=== PATIENT | female | born 1945 | race Asian ===

== ENCOUNTER 2017-04-09 12:28 | Emergency (ER) | payer OTHER ==
[~2017-04-09] VITALS: Ht 152.4 cm; Wt 56.2 kg
[2017-04-09 12:38] VITALS: BP_SYST 132
[2017-04-09 13:40] LABS: BASOPHILS % (AUTO) 0.2 % (0.0-2.0); EOSINOPHILS # (AUTO) 0.1 K/uL (0.0-0.4); EOSINOPHILS % (AUTO) 0.8 % (0.0-4.0); HEMATOCRIT 44.2 % (36-48); HEMOGLOBIN 14.4 g/dL (12.0-16.0); LYMPHOCYTES # (AUTO) 0.9 K/uL (1.0-5.5); LYMPHOCYTES % (AUTO) 13.2 % (20.5-51.5); MEAN CORPUSCULAR HEMOGLOBIN 31 pg (27-31); MEAN CORPUSCULAR HGB CONC 33 % (32-36); MEAN CORPUSCULAR VOLUME 94 fL (79.0-98.0); MONOCYTES # (AUTO) 0.4 K/uL (0.0-1.0); MONOCYTES % (AUTO) 5.3 % (1.7-9.3); NEUTROPHILS # (AUTO) 5.6 K/uL (1.8-7.7); NEUTROPHILS % (AUTO) 80.5 % (40.0-70.0); PLATELET COUNT (AUTO) 235 K/uL (130-430); RED BLOOD CELL COUNT(AUTO) 4.73 MIL/uL (4.2-6.2); RED CELL DISTRIBUTION WIDTH 12.4 % (9.0-15.0)
[2017-04-09 13:49] LABS: ANION GAP 7 (5-15); CALCIUM 9.8 mg/dL (8.4-11.0); CHLORIDE 104 mmol/L (98-107); CREATININE 0.54 mg/dL (0.55-1.30); GLUCOSE 142 mg/dL (70-99); POTASSIUM 4.2 mmol/L (3.5-5.1); SODIUM SERUM 139 mmol/L (136-145); UREA NITROGEN, BLOOD 17 mg/dL (8-21)
[2017-04-09 13:54] LABS: ALANINE AMINOTRANSFERASE 22 U/L (12-78); ALBUMIN 3.6 g/dL (3.4-4.8); ASPARTATE AMINOTRANSFERASE 18 U/L (10-37); TOTAL BILIRUBIN 0.7 mg/dL (0.0-1.0)
[2017-04-09 14:10] LABS: BILIRUBIN,URINE NEGATIVE (NEGATIVE); BLOOD, URINE NEGATIVE (NEGATIVE); CLARITY/URINE CLEAR (CLEAR); COLOR,URINE YELLOW (YELLOW); GLUCOSE,URINE NEGATIVE (NEGATIVE); KETONES,URINE NEGATIVE (NEGATIVE); LEUKOCYTE ESTERASE ,URINE TRACE (NEGATIVE); NITRITE, URINE NEGATIVE (NEGATIVE); PH,URINE 6.5 (5.0-8.0); PROTEIN URINE NEGATIVE (NEGATIVE); UROBILINOGEN,URINE 0.2 (0.2-1.0)
[2017-04-09 14:23] LABS: BACTERIA,URINE FEW /HPF (None Seen); RBC,URINE 0-3 /HPF (0-3)
[2017-04-09 16:10] VITALS: BP_SYST 128
== END 2017-04-09 16:10 | disposition home or self-care (01) ==
LOC: SED 12:28
DX: S40.012A Contusion of left shoulder, initial encounter (principal); S40.011A Contusion of right shoulder, initial encounter; S70.01XA Contusion of right hip, initial encounter; S00.83XA Contusion of other part of head, initial encounter; S20.211A Contusion of right front wall of thorax, initial encounter; N39.0 Urinary tract infection, site not specified; E11.9 Type 2 diabetes mellitus without complications; W01.0XXA Fall on same level from slipping, tripping and stumbling without subsequent striking against object, initial encounter; Y93.89 Activity, other specified; Y92.89 Other specified places as the place of occurrence of the external cause; Y99.8 Other external cause status
CPT/HCPCS: 36415; 70450-TC; 71045; 72125-TC; 73030; 73502; 80053; 81000-TC; 84484; 85025; 85610-TC; 85730-TC; 87086; 93005; 99285

== ENCOUNTER 2018-11-20 18:56 | Emergency (ER) | payer OTHER ==
[~2018-11-20] VITALS: Ht 149.9 cm; Wt 56.2 kg
--- NOTE | 2018-11-20 19:15 | NUR ---
Patient to ER bed 8 to gown for evaluation. Side rails up.
[2018-11-20 19:18] VITALS: BP_SYST 136
--- NOTE | 2018-11-20 19:20 | NUR ---
Pt 73 year old female A&Ox3, hx of diabetes and htn C/O Rt upper back pain and RT elbow abrasion and pain S/P mechanical fall. Pt states she was walking on the sidewalk, tripped and fell. Pt is able to ambulate with walker to the bed. Pt denies KO, head or neck pain, trauma, bleeding, dizziness, N/V, or any other symptoms besides the pain. Will continue to monitor.
--- NOTE | 2018-11-20 19:36 | NUR ---
ER Dr. Perdomo at bedside examining patient.
[2018-11-20] MEDS ORDERED: ACETAMINOPHEN 325 MG TABLET PO ONE (19:45)
[2018-11-20] MEDS ORDERED: BACITRACIN ZINC 15 GM TOPICAL OINTMENT TP ONE (19:45)
[2018-11-20] MEDS ORDERED: BACITRACIN 1 GM OINT TP ONE (20:02)
--- NOTE | 2018-11-20 20:13 | NUR ---
Radiology at bedside for xray
[2018-11-20 21:03] VITALS: BP_SYST 136
--- NOTE | 2018-11-20 21:06 | NUR ---
Patient given written and verbal discharge instructions and verbalizes understanding. ER MD discussed with patient the results and treatment provided. Patient in stable condition. ID arm band removed. Patient educated on pain management and to follow up with PMD. Pain Scale 0. Opportunity for questions provided and answered. Medication side effect fact sheet provided.
== END 2018-11-20 21:06 | disposition home or self-care (01) ==
LOC: SED 18:56
DX: S40.011A Contusion of right shoulder, initial encounter (principal); E11.9 Type 2 diabetes mellitus without complications; W01.0XXA Fall on same level from slipping, tripping and stumbling without subsequent striking against object, initial encounter; Y93.89 Activity, other specified; Y92.89 Other specified places as the place of occurrence of the external cause; Y99.8 Other external cause status
CPT/HCPCS: 72072-TC; 82962; 99283

== ENCOUNTER 2020-01-12 11:00 | Emergency (ER) | payer MEDICARE, OTHER ==
[~2020-01-12] VITALS: Ht 154.9 cm; Wt 48.1 kg
[2020-01-12 11:00] VITALS: BP_SYST 142
[2020-01-12 13:00] VITALS: BP_SYST 142
== END 2020-01-12 13:01 | disposition home or self-care (01) ==
LOC: SED 11:00
DX: E11.9 Type 2 diabetes mellitus without complications (principal); Z85.9 Personal history of malignant neoplasm, unspecified; W18.30XA Fall on same level, unspecified, initial encounter; Y93.89 Activity, other specified; Y92.89 Other specified places as the place of occurrence of the external cause; Y99.8 Other external cause status
CPT/HCPCS: 70450-TC; 76376; 99284

== ENCOUNTER 2020-05-31 13:13 | Emergency (ER) | payer MEDICARE ==
[~2020-05-31] VITALS: Ht 152.4 cm; Wt 40.8 kg
[2020-05-31 13:17] VITALS: BP_SYST 152
[2020-05-31 13:19] VITALS: BP_SYST 153
[2020-05-31] MEDS ORDERED: ACETAMINOPHEN 325 MG TABLET PO ONE (14:15)
[2020-05-31 14:46] LABS: BASOPHILS % (AUTO) 0.2 % (0.0-2.0); EOSINOPHILS # (AUTO) 0.1 K/uL (0.0-0.4); HEMATOCRIT 40.5 % (36-48); HEMOGLOBIN 13.4 g/dL (12.0-16.0); LYMPHOCYTES # (AUTO) 0.9 K/uL (1.0-5.5); LYMPHOCYTES % (AUTO) 10.4 % (20.5-51.5); MEAN CORPUSCULAR HEMOGLOBIN 31 pg (27-31); MEAN CORPUSCULAR HGB CONC 33 % (32-36); MEAN CORPUSCULAR VOLUME 93 fL (79.0-98.0); MONOCYTES # (AUTO) 0.4 K/uL (0.0-1.0); MONOCYTES % (AUTO) 4.9 % (1.7-9.3); NEUTROPHILS # (AUTO) 7.5 K/uL (1.8-7.7); NEUTROPHILS % (AUTO) 83.5 % (40.0-70.0); PLATELET COUNT (AUTO) 220 K/uL (130-430); RED BLOOD CELL COUNT(AUTO) 4.37 MIL/uL (4.2-6.2); RED CELL DISTRIBUTION WIDTH 13.7 % (9.0-15.0)
[2020-05-31 14:47] LABS: BILIRUBIN,URINE NEGATIVE (NEGATIVE); COLOR,URINE YELLOW (YELLOW); GLUCOSE,URINE NEGATIVE (NEGATIVE); KETONES,URINE NEGATIVE (NEGATIVE); LEUKOCYTE ESTERASE ,URINE 3+ (NEGATIVE); NITRITE, URINE NEGATIVE (NEGATIVE); PH,URINE 6.5 (5.0-8.0); PROTEIN URINE NEGATIVE (NEGATIVE); UROBILINOGEN,URINE 0.2 (0.2-1.0)
[2020-05-31 14:57] LABS: ANION GAP 7 (5-15); CALCIUM 9.8 mg/dL (8.4-11.0); CHLORIDE 104 mmol/L (98-107); CREATININE 0.67 mg/dL (0.55-1.30); GLUCOSE 93 mg/dL (70-99); POTASSIUM 4.1 mmol/L (3.5-5.1); SODIUM SERUM 142 mmol/L (136-145); UREA NITROGEN, BLOOD 16 mg/dL (8-21)
[2020-05-31 14:58] LABS: BLOOD, URINE TRACE (NEGATIVE)
[2020-05-31 14:59] LABS: CLARITY/URINE HAZY (CLEAR)
[2020-05-31 15:02] LABS: BACTERIA,URINE FEW /HPF (None Seen); WBC,URINE 20-50 /HPF (0-3)
[2020-05-31 15:03] LABS: MUCUS,URINE 1+ /LPF (None Seen)
[2020-05-31 15:13] LABS: ALANINE AMINOTRANSFERASE 32 U/L (12-78); ALBUMIN 3.8 g/dL (3.4-4.8); ASPARTATE AMINOTRANSFERASE 20 U/L (10-37); TOTAL BILIRUBIN 0.7 mg/dL (0.0-1.0)
[2020-05-31 15:34] VITALS: BP_SYST 136
[2020-05-31] MEDS ORDERED: NITR-85 PO (15:53)
== END 2020-05-31 16:00 | disposition home or self-care (01) ==
LOC: SED 13:13
DX: N39.0 Urinary tract infection, site not specified (principal); E11.9 Type 2 diabetes mellitus without complications
CPT/HCPCS: 36415; 80053; 81000-TC; 84484; 85025; 87086; 93005; 99284

== ENCOUNTER 2020-09-01 02:09 | Inpatient (IN) | payer MEDICARE, SELFPAY ==
[2020-09-01] VITALS (29 sets, daily range): BP systolic 74–192
[~2020-09-01] VITALS: Ht 152.4 cm; Wt 40.4 kg
[~2020-09-01 02:09] MED LIST: NITR-85 PO
--- NOTE | 2020-09-01 02:09 | NUR ---
Patient to ER bed 1 to gown for evaluation. Side rails up. Report given to SAVANNA MENDEZ.
--- NOTE | 2020-09-01 02:10 | NUR ---
PT BIB ALS FROM HOME C/O RESPIRATORY DISTRESS. PER EMS PT WAS TACHY 112 AND HYPOTENSIVE IN FIELD WITH SBP IN 80'S AND HYPOXIC WITH SPO2 80% ON NRB. PT ARRIVED WITH CPAP ON, COOL SKIN, DIAPHORETIC, NONVERBAL.
--- NOTE | 2020-09-01 02:10 | NUR ---
accucheck 96
--- NOTE | 2020-09-01 02:11 | NUR ---
# 20 gauge angiocath placed to RFA. Use of asceptic technique. Opsite placed over site. Blood return noted. Blood for lab drawn from site. Flushed with 10 cc of normal saline. No evidence of infiltration noted. Patient tolerated well.
[2020-09-01] MEDS ORDERED: IPRATROPIUM BROM 0.5 MG/2.5 ML VIAL.NEB (ATROVENT) INH ONE (02:15)
[2020-09-01] MEDS ORDERED: LevALBUTEROL HCL 1.25 MG/0.5 ML *CONC.* VIAL.NEB (XOPENEX CONC.) INH ONE ×2 (02:15→04:45)
[2020-09-01] MEDS ORDERED: NACL 0.9% 1,000 ML IV ONE ×2 (02:15→03:45)
--- NOTE | 2020-09-01 02:15 | NUR ---
DR. ROWAN AT BEDSIDE FOR EVALUATION.
--- NOTE | 2020-09-01 02:39 | NUR ---
# 16 FR Farnsworth catheter with use of sterile technique. Immediate return of 100 cc YELLOW AND CLOUDY urine noted. Bedside drainage bag placed below level of bladder. Urine sample collected and sent to lab. Pt tolerated procedure WELL Patient unable to toilet self.
[2020-09-01 02:56] LABS: BASOPHILS % (AUTO) 0.1 % (0.0-2.0); HEMATOCRIT 46.6 % (36-48); HEMOGLOBIN 14.7 g/dL (12.0-16.0); LYMPHOCYTES % (AUTO) 7.9 % (20.5-51.5); MEAN CORPUSCULAR HEMOGLOBIN 29 pg (27-31); MEAN CORPUSCULAR HGB CONC 32 % (32-36); MEAN CORPUSCULAR VOLUME 93 fL (79.0-98.0); MONOCYTES # (AUTO) 0.6 K/uL (0.0-1.0); MONOCYTES % (AUTO) 4.4 % (1.7-9.3); NEUTROPHILS # (AUTO) 11.1 K/uL (1.8-7.7); NEUTROPHILS % (AUTO) 87.6 % (40.0-70.0); PLATELET COUNT (AUTO) 126 K/uL (130-430); RED BLOOD CELL COUNT(AUTO) 5.01 MIL/uL (4.2-6.2); WHITE BLOOD COUNT (AUTO) 12.7 K/uL (4.8-10.8)
[2020-09-01 03:06] LABS: BILIRUBIN,URINE NEGATIVE (NEGATIVE); BLOOD, URINE 3+ (NEGATIVE); CLARITY/URINE CLOUDY (CLEAR); COLOR,URINE YELLOW (YELLOW); GLUCOSE,URINE NEGATIVE (NEGATIVE); KETONES,URINE TRACE (NEGATIVE); LEUKOCYTE ESTERASE ,URINE 2+ (NEGATIVE); NITRITE, URINE NEGATIVE (NEGATIVE); PH,URINE 5.5 (5.0-8.0); PROTEIN URINE 1+ (NEGATIVE); UROBILINOGEN,URINE 0.2 (0.2-1.0)
[2020-09-01 03:08] LABS: BACTERIA,URINE MANY /HPF (None Seen); WBC,URINE >100 /HPF (0-3)
[2020-09-01 03:12] LABS: INR 1.1 (0.8-1.2); PROTHROMBIN TIME 11.8 SECS (9.5-12.5)
[2020-09-01 03:14] LABS: ANION GAP 23 (5-15); CALCIUM 9.6 mg/dL (8.4-11.0); CREATININE 1.78 mg/dL (0.55-1.30); GLUCOSE 90 mg/dL (70-99); UREA NITROGEN, BLOOD 91 mg/dL (8-21)
[2020-09-01] MEDS ORDERED: cefTRIAXone 1 GM IVPB PREMIX 50 ML IV ONE (03:15)
[2020-09-01 03:18] LABS: ALANINE AMINOTRANSFERASE 27 U/L (12-78); ALBUMIN 2.6 g/dL (3.4-4.8); ASPARTATE AMINOTRANSFERASE 38 U/L (10-37); TOTAL BILIRUBIN 1.1 mg/dL (0.0-1.0)
[2020-09-01 03:19] LABS: CHLORIDE 120 mmol/L (98-107); POTASSIUM 2.5 mmol/L (3.5-5.1); SODIUM SERUM 165 mmol/L (136-145)
[2020-09-01] MEDS ORDERED: KCL 20 mEq in 100 mL (PREMIX) 100 ML IV ONE (03:45)
[2020-09-01] MEDS ORDERED: ASPIRIN 300 MG/SUPP.RECT SUPP RC ONE ×2 (03:45→03:55)
[2020-09-01] MEDS ORDERED: NS 500 ML IV ONE (04:30)
--- NOTE | 2020-09-01 04:30 | NUR ---
Patient's code status is FULL CODE paperwork completed and placed in chart.
[2020-09-01] MEDS ORDERED: AZITHROMYCIN 500 MG in NS 250 ML IV ONE ×2 (04:45→05:15)
[2020-09-01] MEDS ORDERED: methylPREDNISolone SOD SUCC/PF 62.5 MG/ML VIAL IVP ONE ×2 (04:45)
[2020-09-01] MEDS ORDERED: NACL 0.9% 1,000 ML IV SCH ×2 (04:45→05:15)
[2020-09-01] MEDS ORDERED: AZITHROMYCIN 500 MG/VIAL (ZITHROMAX) IV ONE (04:54)
--- NOTE | 2020-09-01 04:58 | NUR ---
Patient will be admitted to care of DR. ALMEIDA. Admitted to ICU unit. Will go to room 1. Belongings list completed. Complete and up to date summary report printed. SBAR report to be given at bedside with opportunity for questions.
--- NOTE | 2020-09-01 04:59 | NUR ---
UNABLE TO PERFORM MED RECONCILIATION D/T PATIENT STATUS
--- NOTE | 2020-09-01 05:00 | NUR ---
Transfer to ICU via ACLS protocol. Licensed nurse present. IV present no signs or symptoms of infiltration.
--- NOTE | 2020-09-01 05:05 | NUR ---
ADMISSION NOTE Received patient from ER via gurney. Patient admitted with diagnosis of ACUTE RESPIRATORY FAILURE. PT NONVERBAL. BIPAP IN PLACE PER ORDERS. PERIPHERAL IV SITES PATENT AND INTACT. FC IN PLACE. HOB ELEVATED, BED IN LOWEST POSTIION, CALL LIGHT IN REACH. SAFETY PRECAUTIONS IN PLACE. WILL CONTINUE TO MONITOR PT.
[2020-09-01] MEDS ORDERED: POTASSIUM CHLORIDE 20 MEQ in NS 250 ML IV ONE (06:30)
[2020-09-01] MEDS ORDERED: DILTIAZEM HCL 25 MG/5 ML VIAL IVP PRN (06:30)
[2020-09-01] MEDS ORDERED: PIPERACILLIN/TAZO 2.25G/DEX-IS 50 ML IV SCH (06:30)
--- NOTE | 2020-09-01 06:32 | NUR ---
CONSULTATION PAGED: PRIORITY: ROUTINE REASON FOR CONSULTATION: ELEVATED TROP WAS CONSULT CALLED:Y PERSON WHO WAS NOTIFIED: BUD CONSULTING PHYSICIAN: DR. CABRERA ASSOCIATE PROFESSOR OF LITERACY SPECIALTY: CARDIO ASSOCIATE PROFESSOR OF LITERACY PHONE NUMBER: [phone] REQUESTING PHYSICIAN: DR. ALMEIDA
[2020-09-01] MEDS ORDERED: DEXTROSE 50% JECT 50 ML DISP.SYRIN IVP PRN (07:00)
[2020-09-01] MEDS ORDERED: D5LR 1,000 ML IV SCH (07:00)
[2020-09-01] MEDS: IPRATROPIUM/ALBUTEROL SULFATE 3 ML AMPUL.NEB (DUONEB) INH SCH ×3 (07:00→19:15)
[2020-09-01] MEDS ORDERED: IPRATROPIUM/ALBUTEROL SULFATE 3 ML AMPUL.NEB (DUONEB) INH PRN (07:00)
--- NOTE | 2020-09-01 07:02 | NUR ---
DR. ELLE LOPEZ AT BEDSIDE TO EVALUATE PT. MADE AWARE OF PT RECEIVING NS IVF/BOLUS' WITH SODIUM LEVEL 165. ORDERS RECEIVED TO CHANGE IVF TO D5LR @ 100 CC/HR. ALSO MADE AWARE OF PT CURRENT ABGS AND NO URINE OUTPUT VIA FC. NO NEW ORDERS RECEIVED AT THIS TIME. WILL ENDORSE TO AM SHIFT FOR CONTINUATION OF CARE.
[2020-09-01 07:20] LABS: HEMATOCRIT 41.9 % (36-48); HEMOGLOBIN 13.3 g/dL (12.0-16.0); MEAN CORPUSCULAR HEMOGLOBIN 30 pg (27-31); MEAN CORPUSCULAR HGB CONC 32 % (32-36); MEAN CORPUSCULAR VOLUME 94 fL (79.0-98.0); PLATELET COUNT (AUTO) 104 K/uL (130-430); RED BLOOD CELL COUNT(AUTO) 4.47 MIL/uL (4.2-6.2); RED CELL DISTRIBUTION WIDTH 15.5 % (9.0-15.0); WHITE BLOOD COUNT (AUTO) 10.5 K/uL (4.8-10.8)
[2020-09-01] MEDS ORDERED: INSULIN REGULAR, HUMAN 100 UNITS/ML, 10 ML VIAL (humuLIN R) SUBCUT PRN (07:30)
--- NOTE | 2020-09-01 07:30 | NUR ---
ENDORSEMENT BEDSIDE REPORT GIVEN TO [facility] RN USING SBAR APPROACH.
[2020-09-01 07:31] LABS: ANION GAP 23 (5-15); CALCIUM 8.5 mg/dL (8.4-11.0); CREATININE 1.81 mg/dL (0.55-1.30); GLUCOSE 96 mg/dL (70-99); POTASSIUM 3.4 mmol/L (3.5-5.1); UREA NITROGEN, BLOOD 98 mg/dL (8-21)
[2020-09-01 07:36] LABS: ALANINE AMINOTRANSFERASE 20 U/L (12-78); ALBUMIN 1.9 g/dL (3.4-4.8); ASPARTATE AMINOTRANSFERASE 37 U/L (10-37); TOTAL BILIRUBIN 0.7 mg/dL (0.0-1.0)
--- NOTE | 2020-09-01 07:46 | NUR ---
Consult called to Dr. Go. Spoke with hCarlene with the exchange.
[2020-09-01 08:24] LABS: CHLORIDE 123 mmol/L (98-107); SODIUM SERUM 164 mmol/L (136-145)
--- NOTE | 2020-09-01 08:25 | NUR ---
Labs Na 164, Cl 123,Troponin 0.[address] Shaffer at the bedside. Orders left.
[2020-09-01] MEDS ORDERED: ETOMIDATE 20 MG/ 10 ML VIAL (AMIDATE) IVP ONE (08:55)
[2020-09-01] MEDS ORDERED: ROCURONIUM BROMIDE 10 MG/ML (ZEMURON) IV ONE (08:55)
[2020-09-01] MEDS: D5W 1,000 ML IV SCH ×4 (09:30→23:32)
--- NOTE | 2020-09-01 09:40 | NUR ---
0850 time out done.right name and birthdate. 0855: sedation administered by Dieter CORRALES. Etomidate 20mg, Rocuronium 50mg via ivp. telephone consent was been consented by daughter ( Roberta PITTS) earlier confirmed by dr. covarrubias and akbar charge nurse. 09 patient was intubated by DR. Shaffer ( manager order) 7.5 cm ETT, 22cm lipline. Vent setting AC 20, TV 450, FiO2 70%, peep of 5. NGT placed via oral, measured and confirmed by two nurse. 929- cxr done. Addendum: 09/01/20 at 1142 by Carmelina Barlow RN 56 MD SHAFFER INSERTED CENTRAL LINE CATHETER AT RIGHT JUGULAR VEIN WITH TRIPLE LUMEN WITH GOOD BLOOD RETURN. FLUSH WITH 10CC OF NS EACH PORT. ASEPTIC TECHNIQUE PERFORMED AND WITNESSED.
--- NOTE | 2020-09-01 09:58 | NUR ---
Nutrition Update Wallace Scale 11 noted. Pt admitted for acute respiratory failure. Diet: N/A BMI: 17.5 kg/m2 RD to follow per nutrition care standards.
[2020-09-01] MEDS ORDERED: POTASSIUM CHLORIDE 20 MEQ/PKT PACKET PO ONE (10:15)
[2020-09-01] MEDS: ENOXAPARIN SODIUM 30 MG/0.3 ML SYRINGE SUBCUT SCH (10:19)
[2020-09-01 10:29] LABS: BAND % (MANUAL) 20 % (0-6); BASOPHILS % (MANUAL) 0 % (0-2); EOSINOPHILS % (MANUAL) 0 % (0-7); LYMPHOCYTES % (MANUAL) 8 % (20-46); MONOCYTES % (MANUAL) 4 % (0-11)
[2020-09-01] MEDS ORDERED: LR 1,000 ML IV ONE ×2 (10:30→15:30)
[2020-09-01] MEDS ORDERED: KCL 40 mEq in 100 mL (PREMIX) 100 ML IV ONE (10:30)
--- NOTE | 2020-09-01 12:00 | NUR ---
Informed MD White about the abg result.no new order received.
--- NOTE | 2020-09-01 12:30 | NUR ---
patient agitated, resp rate 39, started diprivan to 5mcg/kg/min.second nurse witnessed. christiano canada 283 - 4 units of regular insulin administered.
[2020-09-01] MEDS: methylPREDNISolone SOD SUCC 40 MG/ML VIAL IVP SCH ×3 (12:38→23:52)
[2020-09-01] MEDS: PROPOFOL DRIP 100 ML IV PRN (12:38)
[2020-09-01] MEDS: INSULIN REGULAR, HUMAN 100 UNITS/ML, 10 ML VIAL (humuLIN R) SUBCUT PRN ×3 (12:44→22:15)
--- NOTE | 2020-09-01 14:30 | NUR ---
WOUND EVALUATION: Wound Consult received from Dr. Hancock. Thank you, Dr. Hancock, for the consult. Patient received in a [facility] Bed with an Isoflex LOYDA mattress, awake, alert, and oriented. Patient is unable to turn independently. Wallace Score is a . Past Medical History: Paroxysmal Atrial Fibrillation, Hypertension, Diabetes Mellitus Type 2, Dementia. Admitted with Acute Respiratory Failure. Recent Labs: WBC 10.5, RBC 4.47, hemoglobin 13.3, hematocrit 31.9, platelets 104, sodium 164, potassium 3.4, chloride 123, CO2 18, anion gap 23, BUN 98, creatinine 1.81, POC glucose 283, phosphorus 5.0, magnesium 2.8, troponin 0 0.655/0.447, serum total protein 5.3, albumin 1.9. Microbiology: MRSA screen results in progress. Blood culture results x2 in progress. Urine culture results in progress. Intrinsic factors that delay wound healing: Paroxysmal Atrial Fibrillation, Diabetes Mellitus Type 2, Acute Respiratory Failure. Extrinsic factors that delay wound healing: Immobility. Wound Assessment: 1. Sacral-Coccygeal area: sDTI, present on admission. Wound bed has 70% black soft leathery eschar, 25% yellow tissue, 5% red tissue. No odor, no drainage. Periwound intact. Wound measures 6.5 cm x 6.5 cm. Recommend: Cleanse wound with normal saline. Apply moisture barrier cream to periwound. Apply Venelex ointment to open wound bed. Cover site with Sacral foam dressing. Perform site care daily, and as needed for dressing soiling or dislodgment. 2. Right Buttock: Area of dark discoloration, present on admission. Recommend: Cleanse site with mild soap and water. Pat dry. Apply moisture barrier cream to involved area. Perform site care 4 times daily and as needed for soiling. Offload buttocks at all times with 1 pillow underneath each pelvis, and facilitate turning side to side only every 2 hours by placing 1 pillow under right pelvis, then alternate to the left pelvis every 2 hours. 3. Left Inguinal area: Several dark discolored linear lines of tissue within the inguinal fold area, present on admission. Recommend: Cleanse site with mild soap and water. Pat dry. Apply moisture barrier cream to involved area. Perform site care 4 times daily and as needed for soiling. 4. Left Lateral Malleolus: Bony prominence with nonblanchable red discoloration, present on admission. Recommend: Cover site with foam dressing. Elevate, offload and float bilateral heels and ankles with 1 pillow lengthwise under each extremity at all times. Do not allow any portion of heels or ankles to touch bed or other surfaces at any time. Also recommend: Reposition patient side to side only every 2 hours with 1 pillow underneath bilateral pelvic areas, facilitate turning side to side only every 2 hours by placing 1 pillow under right pelvis, then alternate to the left pelvis every 2 hours. Always keep 1 pillow underneath each side of pelvis. Off-load pressure areas with pillows for pressure re-distribution. Offload, elevate and float bilateral heels with pillows. Perform skin care and monitor skin integrity Q shift. Use moisture barrier cream on buttocks and other moisture susceptible areas QID and as needed for soiling. Maintain patient on low air-loss mattress.
--- NOTE | 2020-09-01 15:00 | NUR ---
SBP 71/31, pulse 90, pt on ivf d5W @ 200ml/hr, paged MD Walsh s/w davion answering service, waiting to callback.
[2020-09-01] MEDS: PIPERACILLIN/TAZO 2.25G/DEX-IS 50 ML IV SCH ×2 (16:04→22:06)
[2020-09-01] MEDS ORDERED: VANCOMYCIN HCL 1 GM/NS PREMIX 250 ML IV ONE (16:45)
[2020-09-01] MEDS ORDERED: BALSAM PERU/CASTOR OIL 60 GM OINT...G. TP ONE (17:00)
--- NOTE | 2020-09-01 17:00 | NUR ---
titrate dpirivan 15mcg/kg/min , akbar CORRALES witnessed.
--- NOTE | 2020-09-01 17:20 | NUR ---
kwadwo Pagan for blood culture result. s/w answering service. waiting to callback.
[2020-09-01 17:27] LABS: ANION GAP 14 (5-15); CALCIUM 7.5 mg/dL (8.4-11.0); CHLORIDE 118 mmol/L (98-107); CREATININE 2.05 mg/dL (0.55-1.30); GLUCOSE 343 mg/dL (70-99); POTASSIUM 5.5 mmol/L (3.5-5.1); SODIUM SERUM 151 mmol/L (136-145); UREA NITROGEN, BLOOD 92 mg/dL (8-21)
--- NOTE | 2020-09-01 18:34 | NUR ---
BLOOD SUGAR 298, 4 UNITS OF REGULAR INSULIN ADMINISTERED. TUBE FEEDING STARTED EARLIER PATIENT TOLERATED WELL. NO RESIDUAL NOTED. INCREASE DIPRIVAN TO 20MCG/KG/MIN PATIENT RR 40. BLOOD PRESSURE STABLE. AFEBRILE. KEEP HOB ELEVATED > 30 DEGREE TO PREVENT ASPIRATION. LOPES CATHETER EMPTIED AND RECORDED.
--- NOTE | 2020-09-01 19:00 | NUR ---
patient respiration sustaining 40. increase Diprivan to 25mcg/kg/min. witnessed by Meryl christie.
--- NOTE | 2020-09-01 19:20 | NUR ---
Opening note Received report and assumed care. Vent to ETT tolerating settings on AC 20. No signs of respiratory distress noted. Tolerating GT feeding with no residuals; rate increased from 10 cc/h to 20 cc/h. Blood pressure low 89/35, will assess for need to start Levophed. will continue to monitor.
[2020-09-01] MEDS: NOREPINEPHRINE BITARTRATE 4 MG in NS 246 ML IV PRN (19:45)
--- NOTE | 2020-09-01 19:45 | NUR ---
Levophed started 0.03 mcg/kg/min
--- NOTE | 2020-09-01 20:00 | NUR ---
Assessment completed. Repositioned for comfort. will continue to monitor.
[2020-09-02] VITALS (30 sets, daily range): BP systolic 97–116
[2020-09-02] MEDS: IPRATROPIUM/ALBUTEROL SULFATE 3 ML AMPUL.NEB (DUONEB) INH SCH ×4 (01:33→19:43)
[2020-09-02] MEDS: D5W 1,000 ML IV SCH ×2 (02:46→09:11)
[2020-09-02] MEDS: PIPERACILLIN/TAZO 2.25G/DEX-IS 50 ML IV SCH ×4 (04:00→22:00)
[2020-09-02] MEDS: methylPREDNISolone SOD SUCC 40 MG/ML VIAL IVP SCH ×3 (06:22→17:40)
[2020-09-02] MEDS: INSULIN REGULAR, HUMAN 100 UNITS/ML, 10 ML VIAL (humuLIN R) SUBCUT PRN ×3 (06:46→17:27)
[2020-09-02 07:13] LABS: ANION GAP 17 (5-15); CALCIUM 7.1 mg/dL (8.4-11.0); CHLORIDE 106 mmol/L (98-107); CREATININE 2.18 mg/dL (0.55-1.30); FREE T4 (FREE THYROXINE) 1.4 ng/dl (0.8-1.5); PHOSPHORUS 2.6 mg/dL (2.7-4.5); POTASSIUM 3.8 mmol/L (3.5-5.1); SODIUM SERUM 139 mmol/L (136-145); THYROID STIMULATING HORMONE 1.01 uIu/mL (0.36-3.74); UREA NITROGEN, BLOOD 85 mg/dL (8-21)
--- NOTE | 2020-09-02 07:33 | NUR ---
Called Dr. Bay with a consult, spoke with Lynne from the exchange
--- NOTE | 2020-09-02 07:34 | NUR ---
OPENING NOTE: REPORT RCVD FRO NOC RN, ALL CARES ASSUMED.
[2020-09-02 08:11] LABS: BASOPHILS % (AUTO) 0.2 % (0.0-2.0); LYMPHOCYTES # (AUTO) 0.2 K/uL (1.0-5.5); LYMPHOCYTES % (AUTO) 1.1 % (20.5-51.5); MEAN CORPUSCULAR HEMOGLOBIN 29 pg (27-31); MEAN CORPUSCULAR HGB CONC 32 % (32-36); MEAN CORPUSCULAR VOLUME 92 fL (79.0-98.0); MONOCYTES # (AUTO) 0.3 K/uL (0.0-1.0); MONOCYTES % (AUTO) 1.6 % (1.7-9.3); NEUTROPHILS # (AUTO) 18.1 K/uL (1.8-7.7); PLATELET COUNT (AUTO) 64 K/uL (130-430); RED BLOOD CELL COUNT(AUTO) 3.38 MIL/uL (4.2-6.2); RED CELL DISTRIBUTION WIDTH 15.2 % (9.0-15.0); WHITE BLOOD COUNT (AUTO) 18.6 K/uL (4.8-10.8)
[2020-09-02 08:29] LABS: HEMOGLOBIN 9.9 g/dL (12.0-16.0)
[2020-09-02] MEDS: BALSAM PERU/CASTOR OIL 60 GM OINT...G. TP SCH (09:00)
--- NOTE | 2020-09-02 09:00 | NUR ---
DR. KELLEY AT BEDSIDE, VERBAL REPORT GIVEN.
[2020-09-02] MEDS: ENOXAPARIN SODIUM 30 MG/0.3 ML SYRINGE SUBCUT SCH (09:08)
[2020-09-02] MEDS: AZITHROMYCIN 500 MG in NS 250 ML IV SCH (09:09)
[2020-09-02] MEDS: PROPOFOL DRIP 100 ML IV PRN (09:10)
[2020-09-02 09:49] LABS: GLUCOSE 446 mg/dL (70-99)
--- NOTE | 2020-09-02 10:00 | NUR ---
RN ROUNDS: PATIENT REPOSITIONED FOR COMFORT WITH PILLOW SUPPORT, BED LOW AND LOCKED FOR SAFETY.
[2020-09-02 11:13] LABS: NEUTROPHILS % (AUTO) 97.1 % (40.0-70.0)
--- NOTE | 2020-09-02 13:58 | NUR ---
DR. MA AT BEDSIDE, VERBAL REPORT GIVEN.
[2020-09-02] MEDS ORDERED: 0.45% NS 500 ML IV ONE (14:15)
--- NOTE | 2020-09-02 16:00 | NUR ---
CT SCAN: PLACED PATIENT ONTO PORTABLE MONITOR, RT AT BEDSIDE BAGGING PATIENT, PATIENT BROUGHT TO CT SCAN FOR IMAGING.
--- NOTE | 2020-09-02 16:35 | NUR ---
PATIENT RETURNED FROM CT SCAN WITHOUT INCIDENT.
--- NOTE | 2020-09-02 17:24 | NUR ---
[address] PT [address] SCAN. PT PLACED BACK ON VENT. ETT SECURE AND PATENT. Addendum: 09/02/20 at 1727 by Sharifa Romero RT Amended: Links added.
--- NOTE | 2020-09-02 19:25 | NUR ---
Opening note Received report and assumed care or patient. Vent to ETT in place with settings on AC 20 and tolerating well as patient continues to be sedated with Diprivan at 35 mcg/kg/min and BP supported by Levophed drip at 0.06 mcg/kg/min. No signs of distress requiring repositioning for comfort as per protocol. Right IJ central line in place and patent. will continue to monitor patient as per unit protocol.
--- NOTE | 2020-09-02 21:45 | NUR ---
FAMILY UPDATE SPOKE WITH PTS DAUGHTER LORENZO AND PROVIDED UPDATES ON PT CONDITION. ALL QUESTIONS ANSWERED. WILL CONTINUE TO MONITOR PT.
[2020-09-02 22:45] LABS: URINE SODIUM, RANDOM 8 mmol/L (40-220)
[2020-09-03] VITALS (32 sets, daily range): BP systolic 99–126
[2020-09-03] MEDS: methylPREDNISolone SOD SUCC 40 MG/ML VIAL IVP SCH ×4 (00:09→22:26)
[2020-09-03] MEDS: NOREPINEPHRINE BITARTRATE 4 MG in NS 246 ML IV PRN (00:15)
[2020-09-03] MEDS: PROPOFOL DRIP 100 ML IV PRN ×2 (00:15→11:09)
[2020-09-03] MEDS: IPRATROPIUM/ALBUTEROL SULFATE 3 ML AMPUL.NEB (DUONEB) INH SCH ×4 (00:45→19:30)
[2020-09-03] MEDS: ALBUMIN HUMAN 25% 100 ML IV SCH ×2 (01:30→22:00)
[2020-09-03] MEDS: PIPERACILLIN/TAZO 2.25G/DEX-IS 50 ML IV SCH ×3 (04:00→16:12)
[2020-09-03 06:43] LABS: HEMATOCRIT 27.9 % (36-48); HEMOGLOBIN 9.4 g/dL (12.0-16.0); MEAN CORPUSCULAR HEMOGLOBIN 30 pg (27-31); MEAN CORPUSCULAR HGB CONC 34 % (32-36); MEAN CORPUSCULAR VOLUME 88 fL (79.0-98.0); PLATELET COUNT (AUTO) 54 K/uL (130-430); RED BLOOD CELL COUNT(AUTO) 3.16 MIL/uL (4.2-6.2); RED CELL DISTRIBUTION WIDTH 14.6 % (9.0-15.0); WHITE BLOOD COUNT (AUTO) 23.3 K/uL (4.8-10.8)
[2020-09-03 06:45] LABS: PROTHROMBIN TIME 11.1 SECS (9.5-12.5)
[2020-09-03 07:18] LABS: ALANINE AMINOTRANSFERASE 25 U/L (12-78); ALBUMIN 1.3 g/dL (3.4-4.8); ANION GAP 19 (5-15); ASPARTATE AMINOTRANSFERASE 40 U/L (10-37); CALCIUM 7.2 mg/dL (8.4-11.0); CHLORIDE 103 mmol/L (98-107); CREATININE 1.95 mg/dL (0.55-1.30); GLUCOSE 121 mg/dL (70-99); PHOSPHORUS 3.6 mg/dL (2.7-4.5); POTASSIUM 3.2 mmol/L (3.5-5.1); SODIUM SERUM 137 mmol/L (136-145); TOTAL BILIRUBIN 0.7 mg/dL (0.0-1.0); UREA NITROGEN, BLOOD 78 mg/dL (8-21)
--- NOTE | 2020-09-03 07:24 | NUR ---
OPENING NOTE: REPORT RCVD FRO NOC RN, ALL CARES ASSUMED.
--- NOTE | 2020-09-03 07:35 | NUR ---
LAB AT BEDSIDE DRAWING LACTIC ACID
[2020-09-03] MEDS: ENOXAPARIN SODIUM 30 MG/0.3 ML SYRINGE SUBCUT SCH (08:43)
--- NOTE | 2020-09-03 08:43 | NUR ---
MEJIA CHURCHILL: R/T LOW PLATELET AWARE.
[2020-09-03] MEDS: BALSAM PERU/CASTOR OIL 60 GM OINT...G. TP SCH (08:46)
[2020-09-03] MEDS: AZITHROMYCIN 500 MG in NS 250 ML IV SCH (08:47)
[2020-09-03] MEDS ORDERED: POTASSIUM CHLORIDE 20 MEQ/PKT PACKET PO ONE (09:15)
--- NOTE | 2020-09-03 09:29 | NUR ---
DR. KELLEY AT BEDSIDE, VERBAL REPORT GIVEN AND VERBAL IN PERSON ORDERS VD AND TRANSCRIBED.
--- NOTE | 2020-09-03 11:18 | NUR ---
DR. TANG AT BEDSIDE NO NEW ORDERS AT THIS TIME.
[2020-09-03 12:00] LABS: BAND % (MANUAL) 19 % (0-6)
[2020-09-03 12:01] LABS: BASOPHILS % (MANUAL) 0 % (0-2); EOSINOPHILS % (MANUAL) 0 % (0-7); LYMPHOCYTES % (MANUAL) 2 % (20-46); MONOCYTES % (MANUAL) 0 % (0-11)
[2020-09-03] MEDS ORDERED: MEROPENEM 1 GM in NS 100 ML IV ONE (13:00)
--- NOTE | 2020-09-03 13:01 | NUR ---
DR. MA AT BEDSIDE, VERBAL REPORT GIVEN.
[2020-09-03] MEDS ORDERED: SODIUM BICARBONATE 650 MG TABLET PO ONE (13:30)
--- NOTE | 2020-09-03 14:44 | NUR ---
Dietitian Recommendations * Glucerna 1.2 at 40 ml/hr (goal rate), Gregorio BID, Free Water Flush: 150 ml Q6h via OGT Provides: 1312 kcal/day, 63 gm protein/day, and 1373 ml free water/day Meets: 108% of estimated caloric needs and 102% of lower end of estimated protein needs LP, RD Please refer to Nutrition Assessment for details. Addendum: 09/03/20 at [address] Amended: Links added.
[2020-09-03] MEDS: INSULIN REGULAR, HUMAN 100 UNITS/ML, 10 ML VIAL (humuLIN R) SUBCUT PRN (17:29)
[2020-09-03] MEDS ORDERED: LEVOFLOXACIN 250 MG/D5W 50 ML IV SCH (17:30)
--- NOTE | 2020-09-03 17:34 | NUR ---
CONSULTATION PAGED: PRIORITY: ROUTINE REASON FOR CONSULTATION:LOW PLATELET WAS CONSULT CALLED:Y PERSON WHO WAS NOTIFIED:TABITHA CONSULTING PHYSICIAN:OSMIN BRONSON [employer]S PAYABLE BOOKKEEPER SPECIALTY:CENTER HUMAN RESOURCES MANAGER PHONE NUMBER:[phone] REQUESTING PHYSIC NINA:[facility]
[2020-09-03] MEDS ORDERED: LEVOFLOXACIN IN DEXTROSE 5 % 100 ML IV ONE (17:45)
[2020-09-03] MEDS ORDERED: POTASSIUM CHLORIDE 20 MEQ/PKT PACKET PO PRN (17:45)
--- NOTE | 2020-09-03 18:35 | NUR ---
PAGED DR. ALMEIDA ORDERS [phone] SPOKE WITH EBEN
--- NOTE | 2020-09-03 18:59 | NUR ---
CLOSING NOTE: REPORT GIVEN TO NOC RN, ALL CARES ENDORSED.
--- NOTE | 2020-09-03 19:30 | NUR ---
Opening note Received report and assumed care. Vent to ETT in place tolerating setting on AC 20. Levophed and diprivan infusing to RIJ central line. Repositioned for comfort; will continue to monitor as per unit protocol.
[2020-09-03] MEDS: metroNIDAZOLE 250 mg/NS 50 ML IV SCH ×2 (21:00→22:00)
[2020-09-03] MEDS ORDERED: ALBUMIN HUMAN 25% 300 ML IV ONE (22:04)
[2020-09-03] MEDS: SODIUM BICARBONATE 650 MG TABLET PO SCH (22:27)
[2020-09-03] MEDS ORDERED: metroNIDAZOLE 500 mg/NS 200 ML IV ONE (22:53)
[2020-09-03] MEDS ORDERED: LEVOFLOXACIN 250 MG/D5W 50 ML IV ONE (22:53)
[2020-09-04] VITALS (37 sets, daily range): BP systolic 100–137
[2020-09-04] MEDS: IPRATROPIUM/ALBUTEROL SULFATE 3 ML AMPUL.NEB (DUONEB) INH SCH ×4 (00:15→19:41)
--- NOTE | 2020-09-04 00:30 | NUR ---
Assessment completed and repositioned for comfort. Continue with infusion of albumin and new antibiotics Levaquin and flagyl. will continue to monitor .
[2020-09-04] MEDS: ALBUMIN HUMAN 25% 100 ML IV SCH (02:00)
[2020-09-04 06:31] LABS: ALANINE AMINOTRANSFERASE 26 U/L (12-78); ALBUMIN 2.1 g/dL (3.4-4.8); ASPARTATE AMINOTRANSFERASE 46 U/L (10-37); CALCIUM 7.6 mg/dL (8.4-11.0); CHLORIDE 105 mmol/L (98-107); CREATININE 2.01 mg/dL (0.55-1.30); GLUCOSE 215 mg/dL (70-99); PHOSPHORUS 3.6 mg/dL (2.7-4.5); POTASSIUM 3.7 mmol/L (3.5-5.1); SODIUM SERUM 139 mmol/L (136-145); UREA NITROGEN, BLOOD 82 mg/dL (8-21)
[2020-09-04 06:34] LABS: BASOPHILS % (AUTO) 0.2 % (0.0-2.0); HEMATOCRIT 24.6 % (36-48); HEMOGLOBIN 8.1 g/dL (12.0-16.0); LYMPHOCYTES # (AUTO) 0.1 K/uL (1.0-5.5); LYMPHOCYTES % (AUTO) 0.5 % (20.5-51.5); MEAN CORPUSCULAR HEMOGLOBIN 29 pg (27-31); MEAN CORPUSCULAR HGB CONC 33 % (32-36); MEAN CORPUSCULAR VOLUME 89 fL (79.0-98.0); MONOCYTES # (AUTO) 0.1 K/uL (0.0-1.0); MONOCYTES % (AUTO) 0.5 % (1.7-9.3); NEUTROPHILS # (AUTO) 22.4 K/uL (1.8-7.7); RED BLOOD CELL COUNT(AUTO) 2.78 MIL/uL (4.2-6.2); RED CELL DISTRIBUTION WIDTH 14.5 % (9.0-15.0); WHITE BLOOD COUNT (AUTO) 22.7 K/uL (4.8-10.8)
--- NOTE | 2020-09-04 06:55 | NUR ---
Dr Pulido at bedside for evaluation and assessment, Orders received.
[2020-09-04] MEDS: metroNIDAZOLE 250 mg/NS 50 ML IV SCH ×3 (07:08→21:26)
[2020-09-04 07:28] LABS: PLATELET COUNT (AUTO) 40 K/uL (130-430)
[2020-09-04 07:30] LABS: NEUTROPHILS % (AUTO) 98.8 % (40.0-70.0)
--- NOTE | 2020-09-04 07:30 | NUR ---
Opening Note Received plan of care via sbar from endorsing RN.
--- NOTE | 2020-09-04 07:50 | NUR ---
Critical Value Reported Platelet to MD Walsh. No new orders.
[2020-09-04] MEDS: INSULIN REGULAR, HUMAN 100 UNITS/ML, 10 ML VIAL (humuLIN R) SUBCUT PRN ×2 (07:51→21:26)
--- NOTE | 2020-09-04 08:30 | NUR ---
Spoke to Dr. Pulido on the phone. Discussed ABGs. Received order to place patient on CPAP for 1 Hr.
[2020-09-04] MEDS ORDERED: methylPREDNISolone SOD SUCC 40 MG/ML VIAL IVP SCH (09:00)
[2020-09-04] MEDS ORDERED: PANTOPRAZOLE SODIUM 40 MG/VIAL (PROTONIX) IVP SCH (09:00)
[2020-09-04 09:03] LABS: ANION GAP 16 (5-15)
[2020-09-04] MEDS: SODIUM BICARBONATE 650 MG TABLET PO SCH ×2 (09:03→21:11)
[2020-09-04] MEDS: BALSAM PERU/CASTOR OIL 60 GM OINT...G. TP SCH (09:04)
[2020-09-04] MEDS: methylPREDNISolone SOD SUCC 40 MG/ML VIAL IVP SCH ×2 (14:27→21:59)
--- NOTE | 2020-09-04 19:23 | NUR ---
Closing Note Provided plan of care via sbar from endorsing RN.
--- NOTE | 2020-09-04 20:30 | NUR ---
[facility] SPOKE WITH TAMIKO FROM [facility] AND WAS GIVEN THE FOLLOWING INFORMATION. PT ACCEPTED FOR TRANSFER BY DR. SAMUEL, WILL GO TO ICU ROOM 2314. RECEIVING NURSE IS KYLE AND REPORT TO BE CALLED TO [phone].
--- NOTE | 2020-09-04 20:51 | NUR ---
[facility] TAMIKO CALLED BACK AT THIS TIME STATING ALL [facility] WILL DEXTRINE MIXER PT AT 0000.
--- NOTE | 2020-09-04 21:00 | NUR ---
PATIENT WAS ACCEPTED AND ASSESS DONE , PATIENT HAS TRANSFED ORDER TO [facility].WAITING FOR A BED, ON PROPOFAL DRIP FOR SEDATION AND TUBE FEEDING AWAK COLLEEN OPEN EYES WHEN SOME ONE IS NEAR OR TALKING , TOLERATE WITH THE TUBE FEEDING NOTICE PATIENT HAS 3+ EDEMA LEG AND ARMS ,ALSO NOTICE SOME SKIN ISSUE BRUISE ON THE RIGHT LOWER ARM CAN MOVE THE RIGHT HAND OFF THE BED , NOT THE LEFT NO MOVEMENT OF THE LOWER LEGS ON AN PROPOFAL DRIP FOR SEDATION 25 MCG/KG/MELBA LEVEL 4 TOLERATE ,, STABLE
--- NOTE | 2020-09-04 22:32 | NUR ---
YUSRA TREADWELL FROM [facility] CALLED FOR PT UPDATE. CURRENT VITALS PROVIDED. WILL CONTINUE TO MONITOR PT.
--- NOTE | 2020-09-04 23:30 | NUR ---
AMBULANCE HERE TO PICK THE PATIENT UP , REPORT TO NURSE EMT WAITING CHECK THE PATIENT FOR CLEAN , STABLE PATRIENT WAS PREPARE FOR RIDE TO [facility], REPORT WAS GIVEN TO NURSE KYLE SEXTON
--- NOTE | 2020-09-04 23:36 | NUR ---
FAMILY CALLED LORENZO PITTS AT [phone], LEFT A VOICEMAIL TO PROVIDE FAMILY WITH UPDATE THAT PT IS BEING PICKED UP AT THIS TIME.
[2020-09-04] MEDS: PROPOFOL DRIP 100 ML IV PRN (23:49)
[2020-09-05] MEDS ORDERED: LEVOFLOXACIN 250 MG/D5W 50 ML IV SCH (21:00)
== END 2020-09-05 00:16 | disposition short-term general hospital (02) | DRG 871 ==
LOC: SED 02:09 → SIC 04:37 → SED 05:00
PROVIDERS: ADMIT Internal Medicine; ATTEND Internal Medicine
PROC: 5A1945Z Respiratory Ventilation, 24-96 Consecutive Hours (ICD-10-PCS; principal; 2020-09-01)
PROC: 5A09357 Assistance with Respiratory Ventilation, Less than 24 Consecutive Hours, Continuous Positive Airway Pressure (ICD-10-PCS; 2020-09-01)
PROC: 0BH17EZ Insertion of Endotracheal Airway into Trachea, Via Natural or Artificial Opening (ICD-10-PCS; 2020-09-01)
DX: A41.50 Gram-negative sepsis, unspecified (principal); J96.01 Acute respiratory failure with hypoxia; E43 Unspecified severe protein-calorie malnutrition; G93.41 Metabolic encephalopathy; N17.0 Acute kidney failure with tubular necrosis; J69.0 Pneumonitis due to inhalation of food and vomit; R65.21 Severe sepsis with septic shock; I21.A1 Myocardial infarction type 2; N39.0 Urinary tract infection, site not specified; I69.354 Hemiplegia and hemiparesis following cerebral infarction affecting left non-dominant side; E87.0 Hyperosmolality and hypernatremia; Z68.1 Body mass index [BMI] 19.9 or less, adult; E87.4 Mixed disorder of acid-base balance; J44.0 Chronic obstructive pulmonary disease with (acute) lower respiratory infection; F02.80 Dementia in other diseases classified elsewhere, unspecified severity, without behavioral disturbance, psychotic disturbance, mood disturbance, and anxiety; G30.9 Alzheimer's disease, unspecified; E78.5 Hyperlipidemia, unspecified; I48.0 Paroxysmal atrial fibrillation; E87.6 Hypokalemia; E86.0 Dehydration; D69.6 Thrombocytopenia, unspecified; G40.909 Epilepsy, unspecified, not intractable, without status epilepticus; Z20.822 Contact with and (suspected) exposure to COVID-19; I25.10 Atherosclerotic heart disease of native coronary artery without angina pectoris; D64.9 Anemia, unspecified; I12.9 Hypertensive chronic kidney disease with stage 1 through stage 4 chronic kidney disease, or unspecified chronic kidney disease; E11.22 Type 2 diabetes mellitus with diabetic chronic kidney disease; N18.9 Chronic kidney disease, unspecified; Z74.01 Bed confinement status; Z79.84 Long term (current) use of oral hypoglycemic drugs; Z79.899 Other long term (current) drug therapy; Z95.0 Presence of cardiac pacemaker
CPT/HCPCS: 36415; 36600; 70450-TC; 71045; 76376; 76770; 80048; 80053; 81000; 82043; 82140; 82570; 82803-TC; 82962; 83605; 83735; 83880; 84100; 84302; 84439; 84443; 84484; 85007; 85025; 85027; 85610-TC; 85730-TC; 87040-TC; 87081; 87086; 93005; 93306; 94002; 94003; 94640; 94660; 96365; 96368; 99285; C9113; J0456; J0696; J1030; J1650; J1815; J1956; J2185; J2543; J2704; J2930; J3370; J3480; J3490; J7050; J7612; P9046